=== PATIENT | female | born 1935 | race African-American/Black ===

== ENCOUNTER 2017-01-06 16:33 | Emergency (ER) | payer OTHER ==
[~2017-01-06] VITALS: Ht 165.1 cm; Wt 99.8 kg
[2017-01-06 17:35] LABS: Basophils # (auto) 0 uL; Basophils % (auto) 0.3 % (0.0-2.0); CONDITION Y; Eosinophils # (auto) 0.2 uL; Eosinophils % (auto) 1.7 % (0.0-7.0); Hematocrit 30.6 % (36.0-46.0); Hemoglobin 10.3 g/dL (12.2-16.2); Lymphocytes % (auto) 9.5 % (10.0-50.0); Mean Corpuscular Hgb Conc. 33.8 g/dL (32.0-36.0); Mean Corpuscular Volume 91.8 fL (80.0-100.0); Mean Platelet Volume 9.2 fL (7.4-10.4); Monocytes # (auto) 0.8 uL; Monocytes % (auto) 7.5 % (0.0-12.0); Neutrophils # (auto) 8.5 uL; Platelet Count (auto) 245 10^3/uL (140-450); Red Cell Distribution Width 15.6 % (11.6-16.0); White Blood Cell 10.5 10^3/uL (4.4-10.8)
[2017-01-06 17:49] LABS: Albumin 3.3 g/dL (3.4-5.0); Alkaline Phosphatase 65 U/L (45-117); Anion Gap 16 (5-15); Aspartate Aminotransferase 17 U/L (15-37); BUN/Creatinine Ratio 30.1; Bilirubin, Total 0.2 mg/dL (0.2-1.0); Calcium 8.5 mg/dL (8.5-10.1); Carbon Dioxide 20 mmol/L (21-32); Chloride 93 mmol/L (98-107); GFR African American 16 mL/min; GFR Non-African American 14 mL/min; Glucose 93 mg/dL (74-106); Magnesium 1.6 mg/dL (1.6-2.6); Sodium 129 mmol/L (136-145); Total Protein 7.6 g/dL (6.4-8.2)
[2017-01-06 17:59] LABS: Blood Urea Nitrogen 104 mg/dL (7-18); Potassium 2.9 mmol/L (3.5-5.1)
[2017-01-06] MEDS ORDERED: POTASSIUM CHL 10% (20 MEQ/15ML) 15ml ORAL SOLN PO ONE (18:00)
[2017-01-06] MEDS ORDERED: SODIUM CHLORIDE 0.9% 1,000 ML IV ONE ×2 (18:30→22:30)
[2017-01-06 19:38] LABS: Urine Bilirubin Negative (Negative); Urine Blood Negative /uL (Negative); Urine Color Yellow (Yellow); Urine Glucose Normal (Normal); Urine Ketone Negative (Negative); Urine Nitrite Negative (Negative); Urine RBC 1 /hpf (0 - 4); Urine Squamous Epithelial Cell FEW /hpf (<5); Urine Urobilinogen Normal (Negative); Urine pH 5.5 (5.0-8.0)
[2017-01-06 21:47] LABS: BUN/Creatinine Ratio 31.6; Calcium 8.5 mg/dL (8.5-10.1); Potassium 3.3 mmol/L (3.5-5.1)
[2017-01-06] MEDS ORDERED: POTASSIUM CHL 20 Meq TABLET PO ONE (22:30)
[2017-01-07 00:52] VITALS: BP 166/57
== END 2017-01-07 01:22 | disposition home or self-care (01) ==
LOC: EDBD 16:33 → ER 16:36
DX: E87.1 Hypo-osmolality and hyponatremia (principal); E87.6 Hypokalemia; R19.7 Diarrhea, unspecified; N17.9 Acute kidney failure, unspecified; E11.22 Type 2 diabetes mellitus with diabetic chronic kidney disease; I12.9 Hypertensive chronic kidney disease with stage 1 through stage 4 chronic kidney disease, or unspecified chronic kidney disease; N18.9 Chronic kidney disease, unspecified; R41.82 Altered mental status, unspecified; R42 Dizziness and giddiness; W01.0XXA Fall on same level from slipping, tripping and stumbling without subsequent striking against object, initial encounter; Y93.89 Activity, other specified; Y92.89 Other specified places as the place of occurrence of the external cause; Y99.8 Other external cause status
CPT/HCPCS: 36415; 70450; 72125; 80048; 80053; 81001; 82962; 83735; 84484; 85025; 93005; 96360; 96361; 99285; J7030